=== PATIENT | male | born 1990 | race Hispanic/Latino ===

== ENCOUNTER 2020-08-06 22:51 | Emergency (ER) | payer SELFPAY ==
[2020-08-07] MEDS ORDERED: Dexamethasone 10 MG/ML VIAL ONE (00:10)
[2020-08-07] MEDS ORDERED: Acetaminophen 500 MG TAB ONE (00:10)
[2020-08-07] MEDS ORDERED: Bicillin LA 2.4 MILL.UNITS/4 ML SYRINGE ONE (01:07)
== END 2020-08-07 01:40 | disposition home or self-care (01) ==
LOC: ERS 22:51
DX: J02.0 Streptococcal pharyngitis (principal); R00.0 Tachycardia, unspecified; F17.210 Nicotine dependence, cigarettes, uncomplicated
CPT/HCPCS: 96372; 99284; J0561; J1100